=== PATIENT | female | born 1950 | race Caucasian/White ===

== ENCOUNTER → 2023-05-11 12:53 | Outpatient (REF) | payer MEDICARE, OTHER, SELFPAY | LOC: HWRAD 12:53 | PROVIDERS: ATTENDING PHYSICIAN Family Medicine | DX: R22.1 Localized swelling, mass and lump, neck (principal) | CPT/HCPCS: 76536 ==

== ENCOUNTER → 2023-05-31 14:55 | Outpatient (REF) | payer MEDICARE, OTHER, SELFPAY | LOC: DHCBC HW 14:55 | PROVIDERS: ATTENDING PHYSICIAN Internal Medicine Cardiovascular Disease; FAMILY PHYSICIAN Family Medicine | DX: I42.9 Cardiomyopathy, unspecified (principal); E11.9 Type 2 diabetes mellitus without complications; Z86.79 Personal history of other diseases of the circulatory system; I50.1 Left ventricular failure, unspecified | CPT/HCPCS: 93306 ==

== ENCOUNTER 2023-06-14 07:15 | Day surgery (SDC) | payer MEDICARE, OTHER, SELFPAY ==
[2023-06-14] VITALS (10 sets, daily range): BP systolic 124–153; BP diastolic 68–84; BMI 40.9; BMI 39.4
[2023-06-14 07:49] LABS: Glucose - Point of Care 330 mg/dl (70-99)
[2023-06-14] MEDS: NSS 298 ML IV (08:07)
[2023-06-14] MEDS: LOW STRENGTH ASPIRIN 81 MG PO (08:10)
[2023-06-14] MEDS: BENADRYL 50 MG IV (08:22)
--- NOTE | 2023-06-14 10:32 | ITS.CL.CATH ---
Software Development Leader - Catheterization
Cardiac Catheterization
Procedure Report:
CARDIAC CATHETERIZATION REPORT
Date of Procedure: 06/14/2023
Referring: Nestor Noble MD
Indication: Worsening left ventricular function in patient with prior history of nonischemic cardiomyopathy
HEMODYNAMIC DATA
AO: 150/76
LV: 150/16
LEFT VENTRICULOGRAPHY: Severe inferior hypokinesis with moderate to severe hypokinesis of the other visualized segments. The LVEF is 27%
CORONARY ANGIOGRAPHY
Dominance: Left
Left Main: Short without focal stenosis
LAD: 20% mid LAD stenosis distal to the takeoff of the first diagonal branch with otherwise trivial luminal irregularities in the LAD system
Circumflex: Large dominant vessel with trivial luminal irregularities
RCA: Nondominant vessel with 70% mid stenosis
Closure Device: None-the procedure was performed via the right radial artery. The Christiano's test was normal prior to the procedure.
Radiation (mGy): 218
DAP (cm2.Gy): 21.4
Fluoroscopy time: 3.0 minutes
CONCLUSIONS
1: Systemic hypertension
2: Patient is euvolemic (LVEDP 16) at weight of 99 kg
3. Severe global hypokinesis with EF 27%
4. No significant obstructive CAD. The moderate lesion in the nondominant RCA is not of clinical significance
5. Recommend continued medication for nonischemic cardiomyopathy. She would be an appropriate candidate for biventricular pacer/ICD (QRS duration 142 ms)
Copy to: Nestor Noble MD, Suellen Arora,
Alek Orellana MD, [facility], [facility]
== END 2023-06-14 13:15 | disposition home or self-care (01) ==
LOC: CATH 07:15
PROVIDERS: ATTENDING PHYSICIAN Internal Medicine Cardiovascular Disease; FAMILY PHYSICIAN Family Medicine
DX: I25.10 Atherosclerotic heart disease of native coronary artery without angina pectoris (principal); I42.8 Other cardiomyopathies; I10 Essential (primary) hypertension; Z79.82 Long term (current) use of aspirin
CPT/HCPCS: 82962; 93005; 93458; C1894; Q9967

== ENCOUNTER → 2023-06-24 10:02 | Outpatient (REF) | payer MEDICARE, OTHER, SELFPAY | LOC: RAD 10:02 | PROVIDERS: ATTENDING PHYSICIAN Internal Medicine Cardiovascular Disease; FAMILY PHYSICIAN Family Medicine | DX: I42.9 Cardiomyopathy, unspecified (principal); E11.9 Type 2 diabetes mellitus without complications; Z86.79 Personal history of other diseases of the circulatory system; I50.1 Left ventricular failure, unspecified; R42 Dizziness and giddiness; I25.10 Atherosclerotic heart disease of native coronary artery without angina pectoris | CPT/HCPCS: 93880 ==

== ENCOUNTER → 2023-09-05 12:47 | Outpatient (REF) | payer MEDICARE, OTHER, SELFPAY | LOC: HWRCS 12:47 | PROVIDERS: ATTENDING PHYSICIAN Internal Medicine Cardiovascular Disease; FAMILY PHYSICIAN Physician Assistant | DX: I42.9 Cardiomyopathy, unspecified (principal); E11.9 Type 2 diabetes mellitus without complications; Z86.79 Personal history of other diseases of the circulatory system; I50.1 Left ventricular failure, unspecified; R42 Dizziness and giddiness; R22.1 Localized swelling, mass and lump, neck | CPT/HCPCS: 93306 ==

== ENCOUNTER → 2023-09-08 11:14 | Outpatient (REF) | payer MEDICARE, OTHER, SELFPAY ==
--- NOTE | 2023-09-08 11:51 | CARDSERVLU ---
Echocardiogram with Lumason completed after protocol screening completed. Allergies verified.
Patent IV site: Right antecubital 22 G PC,rapid blood return
IV site flushed with 0.9% NaCl pre and post administration.
Diluted bolus method utilized to enhance visualization of ventricular north.
Total volume given: __4__ mL
Patient tolerated all procedures well without complications.
Heplock D/C ed at 1150. site clear, no redness, no edema. Pressure held, no bleeding,2x2 applied and taped. Pt offers no complaints.
== END ==
LOC: RCS 11:14
PROVIDERS: ATTENDING PHYSICIAN Internal Medicine Cardiovascular Disease; FAMILY PHYSICIAN Family Medicine
DX: I10 Essential (primary) hypertension (principal); I25.10 Atherosclerotic heart disease of native coronary artery without angina pectoris; E78.5 Hyperlipidemia, unspecified
CPT/HCPCS: 93308; Q9950

== ENCOUNTER → 2023-10-24 08:32 | Outpatient (REF) | payer MEDICARE, OTHER, SELFPAY | LOC: PAVMRI 08:32 | PROVIDERS: ATTENDING PHYSICIAN Internal Medicine Cardiovascular Disease; FAMILY PHYSICIAN Family Medicine | DX: I42.9 Cardiomyopathy, unspecified (principal); R93.1 Abnormal findings on diagnostic imaging of heart and coronary circulation; I51.89 Other ill-defined heart diseases | CPT/HCPCS: 75561; 75565; A9585 ==

== ENCOUNTER 2023-10-30 14:10 | Emergency (ER) | payer MEDICARE, OTHER, SELFPAY ==
[2023-10-30 14:15] VITALS: BP 124/94
--- NOTE | 2023-10-30 16:21 | ED.GENMED ---
History of Present Illness
<Ciera Purcell PA-C - Last Filed: 10/30/23 19:45>
General
Chief Complaint: Skin Problem
Source: patient
Exam Limitations: none
Time Seen by Provider: 10/30/23 16:21
Nursing documentation reviewed up to this point in time: agreed with
History of Present Illness
History of Present Illness:
This is a 73-year-old female with past medical history of diabetes on semaglutide, coronary artery disease, hypertension on lisinopril presenting emergency department today with concerns of numbness and tingling in her lips and left eyelid swelling.
She also notes that her upper lip feels a bit swollen. She also complains of 2 months of hives. Patient states that this started around the same time she started a new diabetes medication called semaglutide (Rubelsus). Patient states that her
primary care provider started her on this medication she is a follow-up appointment with her primary next week. She also has a first-time new appointment with a wildfire prevention specialist in November. Patient has been taking Estela every day for this with no
relief. Patient's not tried any other medications. Patient denies any tongue swelling, any trouble breathing, any nausea vomiting, chest pain, wheezing, new foods. Patient had something like this before years ago with dog dander but has not had
anything until now.
Past History
<Ciera Purcell PA-C - Last Filed: 10/30/23 19:45>
Past History
ED Past Medical History: CAD, Hypercholesterolemia and NIDDM
ED Past Surgical History: Gynecological
Social History
Tobacco: Non-smoker
Alcohol: None
Drug: None
Review of Systems
<Ciera Purcell PA-C - Last Filed: 10/30/23 19:45>
Review of Systems
All Other Systems: ROS reviewed and negative except as documented in HPI and ROS
Phy Exam
<Ciera Purcell PA-C - Last Filed: 10/30/23 19:45>
Physical Exam
Physical Exam:
General: Patient is well appearing and in no acute distress; non-toxic
Skin: Warm and dry, there are scattered urticaria noted on the abdomen, and bilateral upper extremities, with associated excoriations
Head: Normocephalic, atraumatic
Eyes: Sclera non-icteric. EOMs intact. Mild upper palpebra swelling.
Mouth: Dentition intact. No tonsillar hypertrophy. Uvula midline. No tongue swelling. Mild swelling upper lip.
Cardiac: Regular rate and rhythm, no murmurs
Peripheral Vascular: No lower extremity swelling or edema
Pulm: Normal respiratory effort
Abdomen: No abdominal tenderness to palpation
Neuro: CN II-XII intact, no focal neurologic deficits.
Psychiatric: Appropriate mood and affect.
Course
<Ciera Purcell PA-C - Last Filed: 10/30/23 19:45>
Vital Signs
Initial and Last Documented VS:
Initial Vital Signs
Temp Pulse Resp BP Pulse Ox
97.9 F 66 16 124/94 99
10/30/23 14:15 10/30/23 14:15 10/30/23 14:15 10/30/23 14:15 10/30/23 14:15
Last Documented Vital Signs
Temp Pulse Resp BP Pulse Ox
97.9 F 66 16 124/94 99
10/30/23 14:15 10/30/23 14:15 10/30/23 14:15 10/30/23 14:15 10/30/23 14:15
<Nicholas Araiza DO - Last Filed: 10/30/23 17:22>
Vital Signs
Initial and Last Documented VS:
Initial Vital Signs
Temp Pulse Resp BP Pulse Ox
97.9 F 66 16 124/94 99
10/30/23 14:15 10/30/23 14:15 10/30/23 14:15 10/30/23 14:15 10/30/23 14:15
Last Documented Vital Signs
Temp Pulse Resp BP Pulse Ox
97.9 F 66 16 124/94 99
10/30/23 14:15 10/30/23 14:15 10/30/23 14:15 10/30/23 14:15 10/30/23 14:15
Michaellt;Ciera Purcell PA-C - Last Filed: 10/30/23 19:45>
MDM/Problems Addressed
Differential Diagnosis Includes:
ddx include acute drug eruption, contact dermatitis, angioedema, cellulitis, erysipelas
MDM/Problems Addressed:
Allergic reaction:
This is a 73-year-old female with past medical history of diabetes on semaglutide, coronary artery disease, hypertension on lisinopril presenting emergency department today with concerns of numbness and tingling in her lips and left eyelid swelling.
She also expresses concern regarding urticaria she has had for 2 months. The symptoms seem to start after she started a new medication for her diabetes. Patient skipped that medication today and noticed that her symptoms did improve. Patient
also concerned about episode she had today of lip swelling. She denies any tongue swelling, no airway involvement. The lip swelling is since gone down prior to arrival to emergency department. Patient does take lisinopril. Lisinopril induced
angioedema certainly possibility, we discussed switching to ARB. Patient does note in her previous book that she had an allergic reaction to Entresto in the past when she had a dry cough. She subsequently switched to lisinopril.
We advised that patient stop lisinopril and her semaglutide. Patient has a follow-up appointment scheduled for a wildfire prevention specialist in a few weeks and has a follow-up appointment with her semaglutide prescriber in a few days. Did also give patient
nitro cream to help with the itching. Patient stable for discharge.
Chronic conditions affecting care:
Diabetes on semaglutide, metformin, Jardiance
Coronary artery disease, hyperlipidemia
Acute Exacerbation and/or Progression of Chronic Illness:
diabetes, htn
<Ciera Purcell PA-C - Last Filed: 10/30/23 19:45>
*Pulse Oximetry
Patient hypoxic: no
*Critical Care Note
Total Time (30-74mins, 75-104mins- exclusive of procedures): Not Applicable
Data Reviewed
Review of Other/Old Records Reveals: Records
ED Attending Note
<Ciera Purcell PA-C - Last Filed: 10/30/23 19:45>
-
Portions of this chart may have been created with voice recognition software.� Occasional wrong word or��sound alike� substitutions may have occurred due to the inherent limitations of voice recognition software.
<Nicholas Araiza DO - Last Filed: 10/30/23 17:22>
ED Attending Note
Patient seen and examined by attending physician: Yes
I performed the substantive portion of visit, reviewed & personally made and approve the management plan that is documented in note by myself or KINSEY.: Yes
I performed a history and physical exam of patient and discussed management with resident, I reviewed resident's note and agree with documented findings and plan of care.: Yes
ED Attending Note:
I evaluated the patient at bedside. The patient presents with rash associated with Rybelsus use and states that the rash is improved today now that she did not take the Rybelsus. This has been an ongoing issue for months but the more acute issue
today is that she had swelling to the upper lip and in the left infraorbital region. She does take lisinopril. She basically describes ABHIJIT inhibitor induced angioedema however symptoms are markedly improved spontaneously. I recommend that she
stop lisinopril and we will switch to an ARB.
Discharge Plan
Departure
Patient Disposition: Home (Routine Discharge)
Date of Disposition: 10/30/23
Time of Disposition: 17:28
Patient with high blood pressure during this ER visit?: Yes
Condition: Good
Discharge Problem:
Allergic reaction
Instructions: Skin Rash (DC), Allergic Reaction ED, BLOOD PRESSURE
Prescriptions:
New
losartan 50 mg tablet
50 mg PO DAILY Qty: 30 0RF
Benadryl Itch Stopping 1-0.1 % cream
1 applic topical DAILY PRN (Reason: itching) Qty: 28.3 0RF
epinephrine 0.3 mg/0.3 mL auto-injector
0.3 ml IM ONCE Qty: 2 0RF
No Action
potassium chloride 20 mEq tablet,ER particles/crystals
20 meq PO DAILY Qty: 30 0RF
ropinirole 1 mg Tablet
1 mg PO HS
metoprolol succinate [Toprol XL] 50 mg Tablet Extended Release 24 Hr
50 mg PO DAILY
glimepiride 2 mg Tablet
2 mg PO DAILY
levothyroxine [Synthroid] 75 mcg Tablet
75 mcg PO DAILY
aspirin 81 mg Tablet
81 mg PO HS
pravastatin 20 mg Tablet
30 mg PO HS
lisinopril 5 mg Tablet
15 mg PO DAILY
Jardiance 10 mg Tablet
10 mg PO DAILY
furosemide [Lasix] 20 mg tablet
10 mg PO DAILY
Referrals:
Suellen Arora DO [Family Provider] -
Activity Restrictions/Additional Instructions:
Benadryl cream has been sent to your pharmacy. You can apply a dime sized amount over the affected area once daily.
PLEASE STOP TAKING THE LISINOPRIL IMMEDIATELY. PLEASE START TAKING LOSARTAN TOMORROW, PLEASE TAKE ONE TABLET ONCE DAILY.
Please follow up with your primary care provider and say that you experienced ANGIOEDEMA while on lisinopril.
Please stop the Rybelsus for the time being until you see your physician.
Please return emergency department should you experience shortness of breath, chest pain, tongue or lip swelling, dizziness, lightheadedness, weakness one-sided body versus the other, numbness or tingling, seizure-like activity.
Interventions
Interventions:
*Risk Screen - Suicide Last Done: 10/30/23 17:52
*General Assessment Last Done: 10/30/23 17:52
*Neglect/Abuse Screening Last Done: 10/30/23 17:52
ED- Fall Risk Assessment Last Done: 10/30/23 17:53
*ED COVID-19 Vaccine History Last Done: 10/30/23 17:52
*Nursing Disposition Last Done: 10/30/23 17:53
ED-Skin Assessment Last Done: 10/30/23 17:53
Discharge Date and Time
Discharge Date/Time: 10/30/23 17:54
Print Language: TAMAZIGHT
== END 2023-10-30 17:54 | disposition home or self-care (01) ==
LOC: EMR 14:10
PROVIDERS: EMERGENCY PHYSICIAN Emergency Medicine; FAMILY PHYSICIAN Family Medicine
DX: T78.40XA Allergy, unspecified, initial encounter (principal); X58.XXXA Exposure to other specified factors, initial encounter; I25.10 Atherosclerotic heart disease of native coronary artery without angina pectoris; E78.00 Pure hypercholesterolemia, unspecified; E11.9 Type 2 diabetes mellitus without complications; I10 Essential (primary) hypertension; Z88.8 Allergy status to other drugs, medicaments and biological substances
CPT/HCPCS: 99282

== ENCOUNTER 2023-11-25 13:46 | Inpatient (IN) | payer MEDICARE, OTHER, SELFPAY ==
[2023-11-25] VITALS (11 sets, daily range): BP systolic 120–147; BP diastolic 61–76; BMI 37.7
[2023-11-25 07:29] LABS: Glucose - Point of Care 348 mg/dl (70-99)
[2023-11-25] MEDS: NOVOLOG vial 6 UNITS SC (07:29)
--- NOTE | 2023-11-25 09:04 | W.ICD.CONTRA ---
Post ICD/PHOTOGRAPH DEVELOPER-D
-
History of IN?: No
LV Function
Left ventricular function study result?: Ejection Fraction </= 35%
ACEI/ARB/ARNI
Patient already on ACEI/ARB/ARNI: Yes
Beta-Igor
Patient already on Beta Igor: Yes
[2023-11-25 10:51] LABS: Glucose - Point of Care 280 mg/dl (70-99)
--- NOTE | 2023-11-25 11:14 | PTCARENOTE ---
Received the patient from the manager laboratory. The patient is aaox3, vss, 99% on RA. 100% v-paced noted on the monitor. Her left chest wall dressing is intact. Left arm immobilizer is in place. She has no complaints of pain. I instructed the patient on her
activity restrictions and oriented her to her room. Her call rebolledo is within reach.
--- NOTE | 2023-11-25 11:21 | ITS.CL.ICD ---
Geotechnical Engineering Technician - ICD
Implantable Cardioverter Defibrillator
Procedure Report:
Date of Procedure: November 25, 2023.
Procedures: Bi-Ventricular ICD implant: Left Ventricular Lead placement, ICD implantation. (No IV contrast was used)
Indication: Dilaed nonischemic cardiomyopathy with LVEF 27% on recent MRI and chronic class III heart failure despite maximally tolerated medical therapy. LBBB with QRS 142 ms. The patient's life expectancy exceeds one year. Heart failure duration
is more than 1 year.
Performing physician: Meir Harper MD, [facility].
Implants:
Pulse Generator: Medtronic; Model# [id number]; Serial# [id number].
Atrial Lead: Medtronic: Model# 5076-45cm; Serial# [id number].
Right Ventricular Lead: Medtronic; Model# [id number]; Serial# [id number].
Left Ventricular Lead: Medtronic; Model# 4298-88cm; Serial# [id number].
Technique: A time out was performed. The procedure site was identified. The patient was anesthetized by the anesthesia service. Preoperative cefazolin was administered. The patient was prepped and draped in the usual fashion. Local anesthetic was
applied to the left prepectoral subcutaneous tissue. A 3 inch incision was made along the left deltopectoral groove. Dissection was carried to the fascia. The left cephalic vein was not found within the deltopectoral fat pad. The left axillary vein
was accessed with a single percutaneous micro- puncture without difficulty and a retained guidewire technique was employed. The leads were introduced with hemostatic peel away introducer sheaths. The ventricular lead was placed at the right
ventricular apical septum. The ventricular lead was secured to the pectoralis muscle and fascia with two 0-silk sutures. The atrial lead was then placed in the right atrial appendage. The atrial lead was secured to the pectoralis muscle and fascia
with two 0-silk sutures. The coronary sinus was accessed with the aid of the ITT EXIM Sure Valve [id number] system with an MP curve. Coronary sinus venography was not performed. The left ventricular lead was placed in the posterolateral vein with
the aid of a BMW wire and gentle probing of the CS. The tip terminate in a mid posterolateral position. The LV lead was secured to the pectoralis muscle and fascia. 8 volt pacing did not capture the diaphragm from any lead. A subcutaneous pocket
was created with Bovie cautery. Hemostasis was excellent. The leads were appropriately attached to the device. The pocket was irrigated with antibiotic solution. The device and leads were placed in the pocket. The generator was secured to prevent
lateral migration of the device. The incision was closed in three layers with absorbable suture. Steri-strips and an silver impregnated dressing were placed. Estimated blood loss was ml. There were no complications. Fluoroscopy: time 10.2 minutes
and DAP 4.09 GyCM2. The device was then interrogated after skin closure. No IV contrast was used during the case.
System Analysis:
RA lead: P: 1.4 mV; Threshold: 1 V @ 0.4 ms; Impedance: 513 ohms.
RV lead: R: 8.1 mV; Threshold: 0.75 V @ 0.4 ms; Impedance: 703 ohms. HVB 55 ohms
LV lead: R: 18 mV; Threshold: 0.75V @ 0.4 ms; Impedance: 745 ohms. There were many very good factors from the quadripolar lead. LV4-LV3 was chosen as it is the most basal posterolateral and had the longest activation time.
Final Programming: Tachy: VT/VF:188 bpm; Smith: DDDR 50-120 bpm.
Conclusion: Uncomplicated Biventricular ICD implant. The BiV ICD system is MRI safe/conditional.
Recommendation: Routine post BiV ICD care.
cc: Nestor Noble MD and Kim Arora, DO/
[2023-11-25 12:58] LABS: Glucose - Point of Care 335 mg/dl (70-99)
[2023-11-25] MEDS: NOVOLOG FLEXPEN-MODERATE RESISTANCE 7 UNITS SC (13:00)
--- NOTE | 2023-11-25 14:03 | CM ---
Chart reviewed. Patient is independent of ADLS, lives with her significant other in a [address], [facility], ambulates with a RW. Plan is for the patient to return home. CM to follow
[2023-11-25] MEDS: ANCEF 5 IV ×2 (16:12→22:59)
[2023-11-25] MEDS: FLUSH (NSS) 2 FLUSH IV (16:12)
[2023-11-25 17:31] LABS: Glucose - Point of Care 371 mg/dl (70-99)
[2023-11-25] MEDS: NOVOLOG FLEXPEN-MODERATE RESISTANCE 9 UNITS SC (17:45)
[2023-11-25] MEDS: DESENEX/MITRAZOL/ZEASORB 1 APPLIC TOPICAL (20:53)
[2023-11-25] MEDS: REQUIP 1 MG PO (20:54)
[2023-11-25 21:46] LABS: Glucose - Point of Care 347 mg/dl (70-99)
[2023-11-25] MEDS: NOVOLOG FLEXPEN 7 UNITS SC (22:55)
[2023-11-26 01:08] LABS: Glucose - Point of Care 249 mg/dl (70-99)
[2023-11-26 04:22] VITALS: BP 131/58
[2023-11-26] MEDS: SYNTHROID 75 MCG PO (04:59)
[2023-11-26 05:07] LABS: Hemoglobin 14.5 g/dL (12.0-16.0); Mean Corp Hgb Conc. 33.7 g/dL (33.0-37.0); Mean Corpuscular Hgb 27.8 pg (27.0-31.0); Mean Corpuscular Volume 82.5 fL (81.0-99.0); Platelet Count 144 10^3/uL (130-400); Red Blood Cell Count 5.21 10^6/uL (4.20-5.40); Red Cell Dist. Width 13.6 % (11.5-14.5); White Blood Cell Count 15.5 10^3/uL (4.8-10.8)
[2023-11-26 05:30] LABS: Blood Urea Nitrogen 25 mg/dl (7-17); Calcium 10.2 mg/dl (8.4-10.2); Carbon Dioxide 26 mmol/L (22-30); Chloride 103 mmol/L (98-107); Estimated Creatinine Clearance 57 ml/min; Glucose 248 mg/dl (70-99); Magnesium 1.9 mg/dl (1.6-2.3); Potassium 4.3 mmol/L (3.5-5.1); Sodium 141 mmol/L (135-145); eGFR > 60.00
[2023-11-26 06:00] VITALS: BMI 37.3
[2023-11-26 07:39] VITALS: BP 141/72
[2023-11-26 08:10] LABS: Glucose - Point of Care 205 mg/dl (70-99)
[2023-11-26] MEDS: DESENEX/MITRAZOL/ZEASORB 1 APPLIC TOPICAL (08:11)
[2023-11-26] MEDS: AMARYL 4 MG PO (08:11)
[2023-11-26] MEDS: JARDIANCE 25 MG PO (08:11)
[2023-11-26] MEDS: TOPROL XL 50 MG PO (08:11)
[2023-11-26] MEDS: COZAAR 50 MG PO (08:11)
[2023-11-26] MEDS: FLUSH (NSS) 1 FLUSH IV (08:11)
[2023-11-26] MEDS: NOVOLOG FLEXPEN-MODERATE RESISTANCE 3 UNITS SC (08:12)
--- NOTE | 2023-11-26 08:19 | W.PN.CD ---
Addendum entered and electronically signed by Luis Zarco MD 11/26/23 11:33:
Patient is seen and evaluated personally. I agree with the finding and documentation of the note below.
73 yrs old woman s/p BiV ICD on 11/25/23. Device is interrogated and optimized.
The device site looks normal without any fluctuation, swelling or bleeding.
OK to discharge.
Original Note:
Today's Communication / Plan
-
okay for d/c today
to resume Eliquis AM per d/c instructions from cath team
follow-up hgbA1C as OP with endocrine
Impression / Plan
-
73 y/o female with NICM, nonobstructive CAD, concern for LV apical thrombus on Eliquis, and DM who is now s/p Bi-V ICD.
Bi-V ICD:
-dressing CDI. No hematoma.
-we reviewed activity restrictions and site care
-incision check arranged in our office
NICM:
-does not appear volume overloaded to assessment
Possible LV apical thrombus:
-per EP team, resume Eliquis Tuesday AM
DM:
-BS high this AM
-hgb A1C pending
-follow-up with interactive video technician
Physical Exam
Vital Signs/Labs
Vital Signs
Temp Pulse Resp BP Pulse Ox
97.6 F 59 16 141/72 98
11/26/23 07:39 11/26/23 07:39 11/26/23 07:39 11/26/23 07:39 11/26/23 07:39
11/25/23 11/26/23 11/27/23
06:59 06:59 06:59
Actual Weight 95.6 kg
11/26/23 04:52
11/26/23 04:52
Magnesium 1.9 mg/dl (1.6-2.3) 11/26/23 04:52
Physical Exam
Constitutional: No acute distress
EENT: Anicteric
Cardiovascular: Rhythm & rate is regular
Respiratory: Respiratory effort normal and Lungs clear to auscul.
GI: Soft, Non tender and Normal bowel sounds
Neuro/Psych: AO x 3
Other: Cath Site (left chest site no hematoma dressing CDI)
Data Reviewed
-
Date of Service: November 26, 2023
EKG: Other (paced)
Labs: Labs Reviewed by me
--- NOTE | 2023-11-26 08:23 | W.CARD.DEVCH ---
Cardiac Device Check
-
Device: Implanted Cardioverter-Defibrillator
Cloud Infrastructure Architect: [employer]
The patient's device was interrogated personally. The device had normal function. No abnormalities seen.
The BiV was pacing RV only with wide QRS. The device was interrogated and programmed to pace BiV with LV 40 msec early with significant narrowing of the QRS.
Will repeat EKG.
--- NOTE | 2023-11-26 08:35 | W.DS.TRANS ---
DC Summary - Parts Counterman
-
Discharge Instructions:
Discharge Diagnosis/Procedures Heart failure, post BiV ICD
Diet Low Cholesterol,2 Gram Sodium,Diabetic, Carb
Controlled
Driving Restrictions No driving for 1 week
Bathing Restrictions OK to Shower
Specialty Instructions Weigh Daily
Instructions:
Stand-Alone Forms: DC Inst - Implanted Device
Changes to Home Medications: No
Discharge Medications:
DC Medications w/original date entered in [employer]
metoprolol succinate 50 mg tablet,extended release 24 hr (Toprol XL) 50 mg PO DAILY blood pressure 06/14/23
ropinirole 1 mg tablet 1 mg PO HS Neurological Condition 06/14/23
diphenhydramine-zinc acetate 1 %-0.1 % topical cream (Benadryl Itch Stopping) 1 applic topical DAILY PRN itching #28.3 grams 10/30/23
epinephrine 0.3 mg/0.3 mL injection, auto-injector 0.3 ml IM ONCE #2 ea 10/30/23
losartan 50 mg tablet 50 mg PO DAILY #30 tabs 10/30/23
empagliflozin 25 mg tablet (Jardiance) 25 mg PO DAILY diabetes 11/25/23
glimepiride 4 mg tablet 4 mg PO DAILY diabetes 11/25/23
levothyroxine 75 mcg tablet 75 mcg PO DAILY thyroid 11/25/23
apixaban 5 mg tablet (Eliquis) 5 mg PO BID Blood Clot Prevention/Tx #0 tabs 11/26/23
Home Medication Changes
resume Eliquis Tuesday 11/28 AM
Pending Results: Yes
Additional Pending Results:
hgbA1C
[2023-11-26 11:00] VITALS: BP 141/71
[2023-11-26 11:53] LABS: Glycohemoglobin (HgbA1c) 8.5 % (4.0-5.6)
== END 2023-11-26 12:02 | disposition home or self-care (01) | DRG 277 ==
LOC: IVU 13:46
PROVIDERS: Internal Medicine Cardiovascular Disease; Nurse Practitioner Adult Health; ADMITTING PHYSICIAN Internal Medicine Cardiovascular Disease; FAMILY PHYSICIAN Family Medicine
PROC: 02HL3KZ Insertion of Defibrillator Lead into Left Ventricle, Percutaneous Approach (ICD-10-PCS; 2023-11-25)
PROC: 02H63KZ Insertion of Defibrillator Lead into Right Atrium, Percutaneous Approach (ICD-10-PCS; 2023-11-25)
PROC: 0JH609Z Insertion of Cardiac Resynchronization Defibrillator Pulse Generator into Chest Subcutaneous Tissue and Fascia, Open Approach (ICD-10-PCS; 2023-11-25)
PROC: 02HK3KZ Insertion of Defibrillator Lead into Right Ventricle, Percutaneous Approach (ICD-10-PCS; 2023-11-25)
PROC: 4B02XTZ Measurement of Cardiac Defibrillator, External Approach (ICD-10-PCS; 2023-11-26)
DX: I50.22 Chronic systolic (congestive) heart failure (principal); I42.8 Other cardiomyopathies; I51.3 Intracardiac thrombosis, not elsewhere classified; I44.7 Left bundle-branch block, unspecified; E78.5 Hyperlipidemia, unspecified; E03.9 Hypothyroidism, unspecified; E11.9 Type 2 diabetes mellitus without complications; Z91.041 Radiographic dye allergy status; Z79.84 Long term (current) use of oral hypoglycemic drugs; Z79.01 Long term (current) use of anticoagulants; Z79.890 Hormone replacement therapy
CPT/HCPCS: 33225; 33249; 71045; 80048; 82962; 83036; 83735; 85027; 93005; C1769; C1777; C1882; C1887; C1892; C1898; C1900

== ENCOUNTER → 2024-10-23 13:53 | Outpatient (REF) | payer MEDICARE, OTHER, SELFPAY | LOC: HWWDC 13:53 | PROVIDERS: ATTENDING PHYSICIAN Family Medicine | DX: Z12.31 Encounter for screening mammogram for malignant neoplasm of breast (principal); M85.80 Other specified disorders of bone density and structure, unspecified site; M85.89 Other specified disorders of bone density and structure, multiple sites | CPT/HCPCS: 77063; 77067; 77080 ==